=== PATIENT | male | born 1945 | race Asian ===

== ENCOUNTER 2021-04-21 17:51 | Emergency (ER) | payer MEDICARE, SELFPAY ==
[~2021-04-21] VITALS: Ht 170.2 cm; Wt 59.0 kg
[2021-04-21 17:58] VITALS: BP_SYST 124
--- NOTE | 2021-04-21 18:00 | NUR ---
Placed in room 3 . Placed on cardiac sonographer, blood pressure machine and pulse oximeter. To gown for exam. Side rails up.
--- NOTE | 2021-04-21 18:05 | NUR ---
Pt bib EMS from home with c/o SOB, h/o COPD. O2 sat 97% on 2L via NC. Other v/s stable, no acute distress noted.
--- NOTE | 2021-04-21 18:10 | NUR ---
ER Dr. Feliciano at bedside examining patient.
--- NOTE | 2021-04-21 18:25 | NUR ---
Lab at bedside for blood draw.
[2021-04-21 18:50] LABS: BASOPHILS # (AUTO) 0.1 K/uL (0.0-0.2); BASOPHILS % (AUTO) 0.3 % (0.0-2.0); EOSINOPHILS % (AUTO) 0.2 % (0.0-4.0); HEMATOCRIT 30.4 % (36-54); HEMOGLOBIN 10.2 g/dL (14.0-18.0); LYMPHOCYTES # (AUTO) 0.9 K/uL (1.0-5.5); MEAN CORPUSCULAR HEMOGLOBIN 31 pg (27-31); MEAN CORPUSCULAR HGB CONC 34 % (32-36); MEAN CORPUSCULAR VOLUME 93 fL (79.0-98.0); MONOCYTES # (AUTO) 0.6 K/uL (0.0-1.0); MONOCYTES % (AUTO) 3.5 % (1.7-9.3); PLATELET COUNT (AUTO) 234 K/uL (130-430); RED BLOOD CELL COUNT(AUTO) 3.27 MIL/uL (4.2-6.2); RED CELL DISTRIBUTION WIDTH 12.9 % (9.0-15.0); WHITE BLOOD COUNT (AUTO) 17.6 K/uL (4.8-10.8)
--- NOTE | 2021-04-21 18:52 | NUR ---
Patient transported to radiology via gurney, accompanied by staff.
[2021-04-21 18:54] LABS: ANION GAP 5 (5-15); CALCIUM 9.4 mg/dL (8.4-11.0); CHLORIDE 90 mmol/L (98-107); CREATININE 0.92 mg/dL (0.55-1.30); GLUCOSE 177 mg/dL (70-99); POTASSIUM 4.6 mmol/L (3.5-5.1); SODIUM SERUM 130 mmol/L (136-145); UREA NITROGEN, BLOOD 50 mg/dL (8-21)
[2021-04-21 18:56] LABS: INR 0.9 (0.80-1.20); PROTHROMBIN TIME 9.7 SECS (9.5-12.5)
[2021-04-21 19:00] LABS: ALANINE AMINOTRANSFERASE 36 U/L (12-78); ALBUMIN 3.9 g/dL (3.4-4.8); ASPARTATE AMINOTRANSFERASE 27 U/L (10-37); TOTAL BILIRUBIN 0.3 mg/dL (0.0-1.0)
--- NOTE | 2021-04-21 19:01 | NUR ---
Care of patient endorsed to SEJAL Oakes. Pt currently in CT, no acute distress noted.
--- NOTE | 2021-04-21 19:10 | NUR ---
REPORT RECEIVED FROM SEJAL MOORE. PT CURRENTLY IN CT SCAN.
[2021-04-21] MEDS ORDERED: LEVOFLOXACIN IN DEXTROSE 5 % 100 ML IV ONE (19:30)
[2021-04-21] MEDS ORDERED: NACL 0.9% 1,000 ML IV ONE (19:30)
--- NOTE | 2021-04-21 20:00 | NUR ---
MEDICATION ADMINISTERED. BLOOD CULTURES COLLECTED. PT SATING 89-90% RA. PLACED ON 2L NC. OXYGENATION NOW 100%.
--- NOTE | 2021-04-21 21:30 | NUR ---
PENDING [facility]. Patient resting quietly. No acute distress noted. Vital signs within normal range.
--- NOTE | 2021-04-21 22:47 | NUR ---
Patient resting quietly. No acute distress noted. Vital signs within normal range. DAUGHTER AT BEDSIDE.
--- NOTE | 2021-04-21 23:36 | NUR ---
Patient to be transferred to [facility]. Is being transferred due to higher level of care. Receiving facility has accepting physician and available space. ER physician has signed transfer form. Patient or responsible constitution party has agreed to transfer and signed form. Patient belongings inventoried and will be sent with patient. Copy of nursing notes, lab reports, EKG, Physicians Orders and X-rays to be sent with patient. Report called to STARLA at receiving facility. Receiving physician is DR. SHINE. ambulance service has been called for transfer. ETA is 0000.
--- NOTE | 2021-04-22 | NUR ---
TRANSPORTATION HAS NOT ARRIVED. TIME EXTENDED TO 5841
--- NOTE | 2021-04-22 01:45 | NUR ---
TRANSPORTATION HAS NOT ARRIVED YET. FOLLOWED UP. TIME EXTENDED TO 15 MORE MINUTES. DTR MADE AWARE.
[2021-04-22 03:24] VITALS: BP_SYST 115
--- NOTE | 2021-04-22 03:24 | NUR ---
PATIENT PICKED UP VIA [facility] AND TAKEN TO [facility]. VSS
== END 2021-04-22 03:24 | disposition short-term general hospital (02) ==
LOC: SED 17:51
DX: R55 Syncope and collapse (principal); J11.00 Influenza due to unidentified influenza virus with unspecified type of pneumonia; J44.9 Chronic obstructive pulmonary disease, unspecified; Z20.822 Contact with and (suspected) exposure to COVID-19
CPT/HCPCS: 36415; 70450; 71045; 76376; 80053; 82009; 83605; 83880; 84484; 85025; 85610; 85730; 86710; 87040; 87426; 93005; 96360; 99285; J1956; J7030